=== PATIENT | female | born 1980 | race Caucasian/White ===

== ENCOUNTER 2017-03-19 05:24 | Day surgery (SDC) | payer BC, OTHER ==
[~2017-03-19] VITALS: Ht 167.6 cm; Wt 88.9 kg
--- NOTE | ~2017-03-19 | O ---
[facility] [address] [address] OPERATIVE REPORT Name: CHUCK JAMES Room #: DEP [facility] [place] M.R.#: [id number] Admission: 03/19/17 Attend Phys: Kurt Dorsey MD Discharge: 03/19/17 Date of : 78 Report #: [id number] THIS REPORT FOR: //name// CC: Kurt AYALA unknown DATE OF SERVICE: 03/19/2017 PREOPERATIVE DIAGNOSIS: Right knee posttraumatic degenerative chondromalacia, status post knee injury and anterior cruciate ligament reconstruction years ago. POSTOPERATIVE DIAGNOSIS: Right knee posttraumatic degenerative chondromalacia, status post knee injury and anterior cruciate ligament reconstruction years ago. PROCEDURE: Right knee arthroscopy with debridement of patellofemoral chondromalacia and mediofemoral condyle chondromalacia and debridement of partial degenerative medial meniscus tear. SURGEON: Kurt Dorsey MD INDICATIONS: This 36-year-old female had bilateral knee injuries as a teenager, she underwent bilateral ACL reconstruction. She had a good result on both knees, but has had some gradual progressive posttraumatic degenerative change in both knees. Now, she has progressive right knee pain and swelling with a sense of generalized crepitus. She still feels stable, but does have pain with varus and valgus stress and pain at the patella. Her clinical and radiographic findings are suggestive of posttraumatic degenerative damage. I have explained that she probably will have significant ongoing knee symptoms and eventually may require an early total knee replacement. At this point, we have elected to go ahead with arthroscopic debridement for evaluation and in hopes we can delay further more aggressive management. DESCRIPTION OF PROCEDURE: The patient was taken to the operating room where she was placed under general anesthesia. Prophylactic intravenous antibiotics were administered. The right knee and leg were meticulously prepped and draped and a thigh tourniquet inflated to 300 mmHg. A lateral suprapatellar inflow cannula was placed. The arthroscope and probe were introduced. Various compartments were sequentially visualized and documented with arthroscopic photography. The intercondylar notch revealed some bony hypertrophy narrowing the notch and causing some impingement on the ACL graft. However, the graft itself was still and in functional condition and seemed to be working adequately. There was some fraying at the margins of the graft and these were trimmed and debrided. A limited notchplasty was also performed to decompress the area and avoid further impingements onto the ACL. [address] [address] OPERATIVE REPORT Name: CHUCK JAMES Room #: DEP [facility] [place] Tarah#: [id number] Admission: 03/19/17 Attend Phys: Kurt Dorsey MD Discharge: 03/19/17 Date of : 78 Report #: [id number] The medial compartment reveals some degenerative tearing of the medial meniscus extending from the mid medial back to the posterior medial horn. This involved about the inner 1/3 to 1/2 of the meniscus and those areas were debrided with a small shaver. There was some cartilage damage on the medial femoral condyle, which I would grade at grade 2 to grade 3 in some areas. There was less severe grade 1 wear on the medial tibial plateau. These areas were very gently debrided, removing the loose irregular and the delaminating cartilage, but leaving as much good cartilage in place as possible. The lateral compartment reveals better cartilage on both the lateral femoral condyle and the lateral tibial plateau. The lateral meniscus appears to be intact and stable. No debridement here was necessary. The patellofemoral articulation revealed rather severe posttraumatic degenerative damage with chondromalacia over most of the patellar surface and most of the trochlea. I would grade this at grade 2 to moderate grade 3 in some areas. There was no exposed subchondral bone, but there were areas of rather severe diffuse cartilage damage with delamination and irregular fibular wear. The patella seems to track nicely and appears to be stable. At this point, I felt we had adequately debrided the knee and removed any loose cartilage and smooth those areas of cartilage damage. The knee seems stable with functional ACL and collateral ligaments, but with significant post-traumatic chondromalacia, this is most severe in the medial compartment and the patellofemoral compartments. I suspect she will have significant ongoing knee symptoms, but I am hopeful this will least result in some symptomatic benefit. I expect she will still need other treatments including periodic injections with cortisone or viscosupplementation other more aggressive treatment measures will probably eventually be required and I suspect she will need an early total knee replacement given these general findings. At this point, the entire knee was copiously irrigated. All excess fluid was evacuated from the knee. The knee was then injected with 40 mg of Depo-Medrol and 20 mL of 0.5% Marcaine with epinephrine. The puncture sites were closed with interrupted nylon suture. A sterile dressing was applied. The patient was awakened and returned to the recovery room in good condition. She will be monitored there for a suitable period and then discharged home. I would anticipate rest, ice, elevation of the coming 48-72 hours, then gradually advancing activity. We will plan to see her back in the office in 1 week for followup and suture removal. <ELECTRONICALLY SIGNED> By: Kurt Dorsey MD 03/20/17 [id number] Kurt Dorsey MD /nt
[~2017-03-19 05:24] MED LIST: FISH OIL 1,001000 M2 PO; IBUPROFEN 800800 M1 PO; MELOXICAM7.5 MG PO; MULTI VITAMIN1 EACH PO; PRILOSEC 10MG C10 MG PO; TRAMADOL 50 MG50 MG PO; TYLENOL325 MG PO
[2017-03-19 11:51] VITALS: BP 114/68
[2017-03-19 14:46] VITALS: BP 114/68
== END 2017-03-19 15:10 | disposition home or self-care (01) ==
LOC: TBA 05:24 → OR 05:24
DX: M94.261 Chondromalacia, right knee (principal); M23.231 Derangement of other medial meniscus due to old tear or injury, right knee; E78.5 Hyperlipidemia, unspecified; K21.9 Gastro-esophageal reflux disease without esophagitis; Z79.899 Other long term (current) drug therapy; Z90.49 Acquired absence of other specified parts of digestive tract; Z87.828 Personal history of other (healed) physical injury and trauma; Z98.890 Other specified postprocedural states
CPT/HCPCS: 50010; 50101; 50405; 51038; 54170; 56526; 62110; 62900; 70005